=== PATIENT | female | born 1975 | race Caucasian/White ===

== ENCOUNTER → 2016-04-11 | Outpatient (CLI) | payer OTHER ==
--- NOTE | 2016-04-12 14:33 | MR ---
MRI of the Left Wrist, Without Contrast April 11, 2016 History: Persistent pain in the region of the hamate after trauma. Technique: Axial, sagittal, and coronal MR sequences of the left wrist are obtained. Findings: Abnormal bone marrow edema compatible with nondisplaced fracture involves the base of the h ook of the hamate. This finding is best visualized on axial images 21 and 22 of series 10. There is a djacent soft tissue edema compatible with hemorrhage. No evidence of fracture displacement. The carpal bones are otherwise benign in features. No additional fracture identified. There is mild e mack and slight deformity of the base of the 5th metacarpal at the articulation with the hamate shayy tible with mild contusion and/or nondisplaced fracture. There is also a small joint effusion at the a rticulation of the hamate with the proximal 5th metacarpal. Scapholunate and lunotriquetral ligaments are intact. There is fraying, mild irregularity, and mild p artial tear of the articular disk of the TFCC at the radial attachment, without full-thickness tear. Distal radius and ulna appear normal. Flexor and extensor tendons are intact. Impressions 1. Nondisplaced fracture of the base of the hook of the hamate. There is also mild contusion or nondi splaced fracture involving the base of the proximal 5th metacarpal. 2. Mild fraying and partial tear of the articular disk of the TFCC at the radial attachment. 3. Intact intrinsic ligaments. Intact extensor and flexor tendons.
== END ==
LOC: FIMAGING 13:49
PROVIDERS: ATTEND Orthopaedic Surgery
DX: Z12.31 Encounter for screening mammogram for malignant neoplasm of breast (principal)